=== PATIENT | male | born 1965 | race African-American/Black ===

== ENCOUNTER 2018-12-16 11:50 | Emergency (ER) | payer BC ==
[~2018-12-16] VITALS: Ht 175.3 cm; Wt 78.0 kg
[2018-12-16 11:58] VITALS: BP 105/45
--- NOTE | 2018-12-16 12:29 | PHYS DOC ---
Past Medical History Past Medical History: Diabetes-Type II Past Surgical History: No Surgical History Alcohol Use: Occasionally Drug Use: None Adult General Chief Complaint Chief Complaint: SKIN PROBLEM HPI HPI Patient is a 53 year old male presents to the ED complaining of swelling to right neck x 1 week ago. States that he had noticed a lump on his right posterior neck. States that it does not hurt him or bother him. States it is soft and movable. No overlying skin changes. States he feels fine except for swelling. Denies night sweats, weight loss, fever, neck pain, headache, vision changes, chest pain, shortness of breath, nausea/vomiting. Review of Systems Review of Systems Constitutional: Denies fever or chills [] Eyes: Denies change in visual acuity, redness, or eye pain [] HENT: Denies nasal congestion or sore throat [] Respiratory: Denies cough or shortness of breath [] Cardiovascular: No additional information not addressed in HPI [] GI: Denies abdominal pain, nausea, vomiting, bloody stools or diarrhea [] : Denies dysuria or hematuria [] Musculoskeletal: Denies back pain or joint pain [] Integument: Denies rash or skin lesions [] Neurologic: Denies headache, focal weakness or sensory changes [] All other systems were reviewed and found to be within normal limits, except as documented in this note. Allergies Allergies Allergies Coded Allergies Type Severity Reaction Last Updated Verified No Known Drug Allergies 12/16/18 No Physical Exam Physical Exam Constitutional: Well developed, well nourished, no acute distress, non-toxic appearance. [] HENT: Normocephalic, atraumatic, bilateral external ears normal, oropharynx moist, no oral exudates, nose normal. pea sized lymph node to right posterior cervical chain. soft, movable, nontender.[] Eyes: PERRLA, EOMI, conjunctiva normal, no discharge. [] Neck: Normal range of motion, no tenderness, supple, no stridor. [] Skin: Warm, dry, no erythema, no rash. [] Back: No tenderness, no CVA tenderness. [] Extremities: No tenderness, no cyanosis, no clubbing, ROM intact, no edema. [] Neurologic: Alert and oriented X 3, normal motor function, normal sensory function, no focal deficits noted. [] Psychologic: Affect normal, judgement normal, mood normal. [] Current Patient Data Vital Signs Vital Signs Date Time Temp Pulse Resp B/P (MAP) Pulse Ox O2 Delivery O2 Flow Rate FiO2 12/16/18 11:58 97.7 79 20 105/45 (65) 98 Room Air 97.7 EKG EKG [] Radiology/Procedures Radiology/Procedures [] Course & Med Decision Making Course & Med Decision Making Pertinent Labs and Imaging studies reviewed. (See chart for details) []Discussed lymph node swelling causes and observation management. Discussed signs and symptoms to return to the ED. Patient understands and agrees with plan. Plans to follow-up with his PCP outpatient in a few weeks. Dragon Disclaimer Dragon Disclaimer This electronic medical record was generated, in whole or in part, using a voice recognition dictation system. Departure Departure Impression: Primary Impression: Swelling of lymph node Disposition: 01 HOME, SELF-CARE Condition: STABLE Patient Instructions: [place] Lymph Node Biopsy MAGGIE RAYMOND Dec 16, 2018 12:29
== END 2018-12-16 12:55 | disposition home or self-care (01) ==
LOC: ER 11:50
DX: R59.0 Localized enlarged lymph nodes (principal); E11.9 Type 2 diabetes mellitus without complications
CPT/HCPCS: 99281